=== PATIENT | male | born 1965 | race American Indian/Alaskan Native ===

== ENCOUNTER 2017-06-20 12:39 | Outpatient (CLI) | payer MEDICARE ==
[2017-06-20 12:57] LABS: Hematocrit 38.3 % (35.5-45.6); Hemoglobin 12.3 gm/dl (11.8-15.2); Mean Corpuscular HGB Conc 32 % (32-34); Mean Corpuscular Hemoglobin 28 pg (28-32); Mean Corpuscular Volume 87 fl (84-94); Platelet Count 200 K/mm3 (140-440); Red Blood Count 4.41 M/mm3 (3.65-5.03); White Blood Count 6.5 K/mm3 (4.5-11.0)
[2017-06-20 13:00] LABS: Red Cell Distribution Width 21.4 % (13.2-15.2)
[2017-06-20 13:23] LABS: Albumin 3.6 g/dL (3.9-5); Albumin/Globulin Ratio 0.7 %; Bilirubin,Total 2.1 mg/dL (0.1-1.2); Calcium 9.4 mg/dL (8.4-10.2); Potassium 3.9 mmol/L (3.6-5.0); Total Protein 8.6 g/dL (6.3-8.2)
[2017-06-20 13:48] LABS: Anisocytosis 1+; Blastocytes % (Manual) 0 %; Diff Status Complete; Large Platelets Few; Polychromasia Few
== END 2017-06-20 12:40 | disposition home or self-care (01) ==
LOC: LABHHL 12:39
DX: I50.9 Heart failure, unspecified (principal)
CPT/HCPCS: 36415; 80053; 85007; 85025